=== PATIENT | male | born 1945 | race Two or more races ===

== ENCOUNTER 2016-11-17 16:49 | Emergency (ER) | payer MEDICAID ==
[~2016-11-17] VITALS: Ht 157.5 cm; Wt 68.0 kg
[2016-11-17] MEDS ORDERED: METOPROLOL SUCC25 MG ORAL (17:16)
[2016-11-17] MEDS ORDERED: METFORMIN HCL1000 M1 ORAL (17:16)
[2016-11-17] MEDS ORDERED: ATORVASTATIN CA40 MG ORAL (17:16)
[2016-11-17] MEDS ORDERED: GABAPENTIN100 MG ORAL (17:16)
[2016-11-17] MEDS ORDERED: OMEPRAZOLE40 M1 ORAL (17:16)
[2016-11-17] MEDS ORDERED: LISINOPRIL2.5 MG ORAL (17:16)
[2016-11-17] MEDS ORDERED: GLIMEPIRIDE1 MG ORAL (17:16)
[2016-11-17] MEDS ORDERED: ASPIR 8181 MG ORAL (17:16)
[2016-11-17 17:32] VITALS: BP 129/73
[2016-11-17 17:57] VITALS: BP 129/73
--- NOTE | 2016-11-17 17:57 | Emergency Room Report ---
History of Present Illness General Chief Complaint: Skin Rash/Abscess Source: Patient (Lauren Seals) Present Illness HPI 71-year-old male presents emergency department complaining of painful blistering rash on the upper right side of the back and right anterior chest x3 days.. he denies nausea, vomiting, fevers, chills or lesions in other areas. Denies nose, ocular, ear involvement. Denies history of immune compromise. Denies CP, Palpitations, LOC, AMS, dizziness, Changes in Vision, Sensation, paresthesias, or a sudden severe headache. (Lauren Seals) Allergies: Coded Allergies: No Known Allergies (Unverified , 11/17/16) Patient History Past Medical History: see triage record Past Surgical History: none Pertinent Family History: none Immunizations: UTD Reviewed Nursing Documentation: PMH: Agreed, PSxH: Agreed (Lauren Seals) Nursing Documentation-PMH Past Medical History: No History, Except For Hx Cardiac Problems: Yes - high chol Hx Hypertension: Yes Hx Diabetes: Yes (Lauren Seals) Review of Systems All Other Systems: negative except mentioned in HPI (Lauren Seals) Physical Exam Vital Signs Date Time Temp Pulse Resp B/P Pulse Ox O2 Delivery O2 Flow Rate FiO2 11/17/16 17:10 98.1 77 16 129/73 100 Room Air Sp02 EP Interpretation: reviewed, normal General Appearance: no apparent distress, alert, GCS 15, non-toxic Head: normocephalic, atraumatic Eyes: bilateral eye PERRL, bilateral eye normal inspection ENT: hearing grossly normal, normal pharynx, no angioedema, normal voice, other - no velasco sign Neck: full range of motion, supple/symm/no masses Respiratory: chest non-tender, lungs clear, normal breath sounds, speaking full sentences Cardiovascular #1: regular rate, rhythm, no edema Gastrointestinal: no rebound Rectal: deferred Musculoskeletal: back normal, gait/station normal, normal range of motion, non- tender, no calf tenderness Neurologic: alert, oriented x3, responsive, motor strength/tone normal, sensory intact, speech normal Psychiatric: judgement/insight normal, memory normal, mood/affect normal, no suicidal/homicidal ideation Skin: normal color, no rash, warm/dry, well hydrated, rash Lymphatic: no adenopathy (Lauren Seals) Medical Decision Making PA Attestation Dr. Peter is my supervising Physician whom patient management has been discussed with. (Lauren Seals) Medicare Attestation The history of Kate Roman has been reviewed and management options for him have been examined and discussed by Jada Peter. I have personally examined and interviewed the patient. (JADA PETER D.O.) Diagnostic Impression: Primary Impression: Shingles outbreak Qualified Codes: B02.9 - Zoster without complications ER Course Pt. presents to the ED c/o rash on right upper back and right anterior chest x3 days Ddx considered but are not limited to cellulitis, scabies, shingles, varicella, dermatitis, urticaria, eczema, tinea Vital signs: are WNL, pt. is afebrile H&PE are most consistent with shingles ORDERS: none required at this time, the diagnosis is clinical ED INTERVENTIONS: None required at this time. DISCHARGE: At this time pt. is stable for d/c to home. Will provide printed patient care instructions, and any necessary prescriptions. Care plan and follow up instructions have been discussed with the patient prior to discharge. (Lauren Seals) Last Vital Signs Date Time Temp Pulse Resp B/P Pulse Ox O2 Delivery O2 Flow Rate FiO2 11/17/16 17:32 16 129/73 100 Room Air 11/17/16 17:10 98.1 77 (Lauren Seals) Disposition: HOME, SELF-CARE Condition: Stable Scripts Gabapentin* (GABAPENTIN*) 300 Mg Capsule 300 MG ORAL THREE TIMES A DAY for 7 Days, #21 CAP 0 Refills Prov: Lauren Seals 11/17/16 Lidocaine HCl (Lidocaine HCl) 120 Gm Cream..g. 1 APPLIC TP TID, #120 GM Prov: Lauren Seals 11/17/16 Hydrocodone Bit/Acetaminophen 5-325* (NORCO 5-325*) 1 Each Tablet 1 TAB ORAL Q6H Y for For Pain, #5 TAB 0 Refills Prov: Lauren Seals 11/17/16 Valacyclovir Hcl* (VALTREX*) 500 Mg Tablet 1000 MG ORAL Q8HR for 7 Days, TAB Prov: Lauren Seals 11/17/16 Patient Instructions: Shingles Additional Instructions: Take medications as directed. Follow up with PCP in 3-5 days Return sooner to ED if new symptoms occur, or current symptoms become worse. Do not drink alcohol, drive, or operate heavy machinery while taking Hagerman as this may cause drowsiness. Lauren Seals Nov 17, 2016 17:57 JADA PETER D.O. Dec 11, 2016 14:25
[2016-11-17] MEDS ORDERED: GABAPENTIN300 MG ORAL (18:00)
[2016-11-17] MEDS ORDERED: VALACYCLOVIR500 MG ORAL (18:00)
[2016-11-17] MEDS ORDERED: NORCO 5-325 TA1 EACH ORAL (18:00)
[2016-11-17] MEDS ORDERED: LIDOCAINE HCL120 GM TP (18:00)
== END 2016-11-17 18:30 | disposition home or self-care (01) ==
LOC: EMR 18:05
DX: B02.9 Zoster without complications (principal); E11.9 Type 2 diabetes mellitus without complications; I10 Essential (primary) hypertension; E78.00 Pure hypercholesterolemia, unspecified
CPT/HCPCS: 99282